=== PATIENT | male | born 1935 | race Caucasian/White ===

== ENCOUNTER 2018-10-19 10:02 | Emergency (ER) | payer MEDICARE, OTHER ==
[~2018-10-19] VITALS: Ht 172.7 cm; Wt 109.1 kg
[2018-10-19 10:13] VITALS: BP_DIAS 74
[2018-10-19] MEDS ORDERED: ALLO100T (10:19)
[2018-10-19] MEDS ORDERED: ASPI81TA85 PO (10:19)
[2018-10-19] MEDS ORDERED: NEXI40CA (10:19)
[2018-10-19] MEDS ORDERED: PRAV40TA2 (10:19)
[2018-10-19] MEDS ORDERED: METO1TAB33 (10:19)
[2018-10-19] MEDS ORDERED: CLON-412 (10:19)
[2018-10-19] MEDS ORDERED: VITA200016 PO (10:19)
[2018-10-19] MEDS ORDERED: NOVOINJ2 (10:19)
[2018-10-19] MEDS ORDERED: LOSA50TA5 (10:19)
[2018-10-19 11:05] LABS: BASO % 0.5 % (0.0-1.0); EOS # 0.2 10^3/uL (0.0-0.50); EOS % 2.5 % (0.0-3.0); HEMATOCRIT 43.4 % (42.0-52.0); LYMPH % 14.7 % (24.0-44.0); MEAN CORPUSCULAR HEMOGLOBIN 30.8 pg (27.0-33.0); MEAN CORPUSCULAR HGB CONC 32.3 g/dl (32.0-36.5); MEAN CORPUSCULAR VOLUME 95.6 fl (80.0-96.0); MONO # 0.5 10^3/uL (0.0-0.8); MONO % 6.9 % (0.0-5.0); NEUTROPHILS # 4.9 10^3/uL (1.8-7.7); NEUTROPHILS % 75.1 % (36.0-66.0); PLATELET COUNT, AUTOMATED 151 10^3/uL (150-450); RED BLOOD COUNT 4.54 10^6/uL (4.30-6.10); WHITE BLOOD COUNT 6.5 10^3/uL (4.0-10.0)
[2018-10-19 11:18] LABS: INR 1.06
[2018-10-19 11:19] LABS: PARTIAL THROMBOPLASTIN TIME 32.7 SECONDS (25.4-37.6)
[2018-10-19 11:26] LABS: BLOOD UREA NITROGEN 28 MG/DL (7-18); CALCIUM LEVEL 8.6 MG/DL (8.8-10.2); CARBON DIOXIDE LEVEL 29 MEQ/L (21-32); CHLORIDE LEVEL 105 MEQ/L (98-107); CREATININE FOR GFR 1.09 MG/DL (0.70-1.30); GLOMERULAR FILTRATION RATE > 60.0 (>35); GLUCOSE, FASTING 124 MG/DL (70-100); POTASSIUM SERUM 4.1 MEQ/L (3.5-5.1); SODIUM LEVEL 141 MEQ/L (136-145)
[2018-10-19] MEDS ORDERED: KEFL500C17 PO (12:25)
[2018-10-19 12:46] VITALS: BP_SYST 167
== END 2018-10-19 12:48 | disposition home or self-care (01) ==
LOC: EDBD 10:02 → M ED 10:02
DX: K94.09 Other complications of colostomy (principal); S81.802D Unspecified open wound, left lower leg, subsequent encounter; X58.XXXD Exposure to other specified factors, subsequent encounter; Y92.89 Other specified places as the place of occurrence of the external cause; E11.9 Type 2 diabetes mellitus without complications; I10 Essential (primary) hypertension; H40.9 Unspecified glaucoma; K22.70 Barrett's esophagus without dysplasia; G47.33 Obstructive sleep apnea (adult) (pediatric); Z79.899 Other long term (current) drug therapy; Z79.82 Long term (current) use of aspirin; Z79.4 Long term (current) use of insulin